=== PATIENT | male | born 1960 | race Caucasian/White ===

== ENCOUNTER 2022-09-05 18:38 | Emergency (ER) | payer OTHER ==
[2022-09-05 18:50] VITALS: TEMP 98
[2022-09-05] MEDS ORDERED: predniSONE 20 MG TAB PO STA (19:00)
[2022-09-05] MEDS ORDERED: valACYclovir HCL 1,000 MG TABLET PO STA (19:00)
--- NOTE | 2022-09-05 19:08 | ED ---
General Adult HPI - General Chief complaint: Neuro Symptoms/Deficit Stated complaint: Stroke symptoms, Facial numbness Time Seen by Provider: 09/05/22 18:52 Source: patient, RN notes reviewed, old records reviewed Mode of arrival: ambulatory Limitations: no limitations - History of Present Illness Initial comments: 61-year-old male presenting for evaluation of right-sided facial weakness. Patient's symptoms have been progressive over the past several days. He is also had an intermittent headache. He noticed that he began to have some drooping of the right corner of his mouth and was unable to close his right thigh. No limb weakness. He did initially report a speech abnormality but this was secondary to the drooping of his face. No history of CVA. No headache currently. - Related Data Previous Rx's Medication Instructions Recorded predniSONE [Deltasone] 60 mg PO DAILY 7 Days #21 tab 09/05/22 valACYclovir HCL [Valtrex] 1,000 mg PO TID 7 Days #21 tablet 09/05/22 Allergies Allergy/AdvReac Type Severity Reaction Status Date / Time Penicillins Allergy Rash/Hives Verified 09/05/22 18:50 Review of Systems ROS Statement: Those systems with pertinent positive or pertinent negative responses have been documented in the HPI. ROS Other: All systems not noted in ROS Statement are negative. Past Medical History Past Medical History: Pulmonary Embolus (PE) History of Any Multi-Drug Resistant Organisms: None Reported Past Surgical History: Appendectomy Past Psychological History: No Psychological Hx Reported Smoking Status: Current every day smoker Past Alcohol Use History: None Reported Past Drug Use History: Marijuana General Exam Limitations: no limitations General appearance: alert, in no apparent distress Head exam: Present: atraumatic, normocephalic Eye exam: Present: normal appearance, PERRL ENT exam: Present: normal exam Neck exam: Present: normal inspection. Absent: tenderness, meningismus Respiratory exam: Present: normal lung sounds bilaterally. Absent: respiratory distress, wheezes Cardiovascular Exam: Present: regular rate, normal rhythm GI/Abdominal exam: Present: soft. Absent: distended, tenderness, guarding, rebound Extremities exam: Present: normal inspection, normal capillary refill Neurological exam: Present: alert, oriented X3, motor sensory deficit (Complete right facial weakness including the forehead unable to close eye), other (5 out of 5 strength in all extremities). Absent: CN II-XII intact Psychiatric exam: Present: normal affect, normal mood Skin exam: Present: warm, dry, intact Course Vital Signs 09/05/22 09/05/22 18:46 19:19 Temperature 98 F Pulse Rate 79 77 Respiratory 20 13 Rate Blood Pressure 125/85 131/98 O2 Sat by Pulse 99 Oximetry EKG Findings - EKG Comments: EKG Findings:: EKG: Sinus rhythm rate of 78, RI interval 155, QRS duration 105, QTC 411, no ST segment elevation. T waves are upright. Medical Decision Making - Medical Decision Making 61-year-old male with several days of progressive facial weakness. Patient has involvement of the forehead and is unable to close the right eye. 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 He did complain of mild intermittent headache did perform CT imaging which was negative for acute cranial hemorrhage or mass effect. Laboratory testing is unremarkable. The patient's in sinus rhythm. He has no other focal findings. He is given prednisone and Valtrex in the emergency department. He is instructed to use artificial tears and tape his eye shut at night. He is given both ophthalmology and neurology follow-up. He is instructed to return with any limb weakness, speech difficulties or any changes whatsoever. - Lab Data Result diagrams: 09/05/22 19:03 09/05/22 19:03 Lab Results 09/05/22 09/05/22 Range/Units 19:03 19:03 WBC 9.4 (3.8-10.6) k/uL RBC 5.31 (4.30-5.90) m/uL Hgb 16.5 (13.0-17.5) gm/dL Hct 48.7 (39.0-53.0) % MCV 91.6 (80.0-100.0) fL MCH 31.0 (25.0-35.0) pg MCHC 33.9 (31.0-37.0) g/dL RDW 13.0 (11.5-15.5) % Plt Count 259 (150-450) k/uL MPV 8.2 Neutrophils % 63 % Lymphocytes % 25 % Monocytes % 7 % Eosinophils % 3 % Basophils % 1 % Neutrophils # 5.9 (1.3-7.7) k/uL Lymphocytes # 2.3 (1.0-4.8) k/uL Monocytes # 0.6 (0-1.0) k/uL Eosinophils # 0.3 (0-0.7) k/uL Basophils # 0.1 (0-0.2) k/uL Sodium 141 (137-145) mmol/L Potassium 4.2 (3.5-5.1) mmol/L Chloride 105 (98-107) mmol/L Carbon Dioxide 24 (22-30) mmol/L Anion Gap 12 mmol/L BUN 12 (9-20) mg/dL Creatinine 0.84 (0.66-1.25) mg/dL Est GFR (CKD-EPI)AfAm >90 (>60 ml/min/1.73 sqM) Est GFR (CKD-EPI)NonAf >90 (>60 ml/min/1.73 sqM) Glucose 101 H (74-99) mg/dL Calcium 9.0 (8.4-10.2) mg/dL Magnesium 2.3 (1.6-2.3) mg/dL Total Bilirubin 0.4 (0.2-1.3) mg/dL AST 24 (17-59) U/L ALT 18 (4-49) U/L Alkaline Phosphatase 72 (38-126) U/L Total Protein 7.1 (6.3-8.2) g/dL Albumin 4.3 (3.5-5.0) g/dL Disposition Clinical Impression: Connor's palsy Disposition: HOME SELF-CARE Condition: Good Instructions (If sedation given, give patient instructions): Connor Palsy (ED) Additional Instructions: Please tape her eye shut at night. Please use lubricating eye ointment at night and artificial tears throughout the day. Please follow-up with your primary care physician as well as referral to neurology and ophthalmology. Prescriptions: predniSONE [Deltasone] 60 mg PO DAILY 7 Days #21 tab valACYclovir HCL [Valtrex] 1,000 mg PO TID 7 Days #21 tablet Is patient prescribed a controlled substance at d/c from ED?: No Referrals: None,Stated [Primary Care Provider] - 1-2 days Nicholas Srinivasan MD [STAFF PHYSICIAN] - 1-2 days Yvon Camarena DO [STAFF PHYSICIAN] - 1-2 days Time of Disposition: 19:52
[2022-09-05 19:20] VITALS: BP 131/98; PULSE 77; RESP 13
[2022-09-05 19:20] LABS: ALT 18 U/L (4-49); AST 24 U/L (17-59); African American GFR (CKD) >90 (>60 ml/min/1.73 sqM); Albumin 4.3 g/dL (3.5-5.0); Alkaline Phosphatase 72 U/L (38-126); Anion Gap 12 mmol/L; Blood Urea Nitrogen 12 mg/dL (9-20); Carbon Dioxide 24 mmol/L (22-30); Chloride 105 mmol/L (98-107); Glucose 101 mg/dL (74-99); Magnesium 2.3 mg/dL (1.6-2.3); Non-African American GFR(CKD) >90 (>60 ml/min/1.73 sqM); Potassium 4.2 mmol/L (3.5-5.1); Sodium 141 mmol/L (137-145); Total Bilirubin 0.4 mg/dL (0.2-1.3); Total Protein 7.1 g/dL (6.3-8.2)
[2022-09-05 19:27] LABS: Basophils # (A) 0.1 k/uL (0-0.2); Basophils % (A) 1 %; Eosinophils # (A) 0.3 k/uL (0-0.7); Eosinophils % (A) 3 %; HCT 48.7 % (39.0-53.0); HGB 16.5 gm/dL (13.0-17.5); Lymphocytes # (A) 2.3 k/uL (1.0-4.8); Lymphocytes % (A) 25 %; MCHC 33.9 g/dL (31.0-37.0); MCV 91.6 fL (80.0-100.0); Mean Platelet Volume 8.2; Monocytes # (A) 0.6 k/uL (0-1.0); Monocytes % (A) 7 %; Neutrophils # (A) 5.9 k/uL (1.3-7.7); Neutrophils % (A) 63 %; Platelet Count 259 k/uL (150-450); RBC 5.31 m/uL (4.30-5.90); WBC 9.4 k/uL (3.8-10.6)
--- NOTE | 2022-09-05 19:43 | CT ---
EXAMINATION: CT brain wo con DATE AND TIME: 09/05/2022 7:15 PM CLINICAL INDICATION: PHH; RT facial weakness TECHNIQUE: Standard departmental protocol.; 1125.4 mGy-cm COMPARISON: None. FINDINGS: The calvarium is intact. There is no intracranial hemorrhage. There is no intracranial mass or mass effect. No definite new intra-axial or extra-axial attenuation defect. The paranasal sinuses, middle ear cavities, and mastoid sinus air cells are clear. The orbits are unremarkable. IMPRESSION: NO ACUTE PROCESS.
== END 2022-09-05 20:08 | disposition home or self-care (01) ==
LOC: EC 18:38
DX: G51.0 Bell's palsy (principal); F17.200 Nicotine dependence, unspecified, uncomplicated; F12.90 Cannabis use, unspecified, uncomplicated; Z88.0 Allergy status to penicillin
CPT/HCPCS: 36415; 93005; 80053; 83735; 85025; 70450; 99285; J7512